=== PATIENT | male | born 1945 | race Caucasian/White ===

== ENCOUNTER 2017-10-01 18:21 | Emergency (ER) | payer OTHER ==
[~2017-10-01] VITALS: Ht 190.5 cm; Wt 59.0 kg
[~2017-10-01 18:21] MED LIST: ATIVAN0.5 M1; CARVEDILOL3.125 MG; CIPRO500 MG PO; CLONAZEPAM2 MG; FLUCONAZOLE50 MG PO; GABAPENTIN600 MG; MEGACE ES625 MG/5 M PO; NEURONTIN300 MG; PROSCAR5 MG; TAMS0.4C; TEMAZEPAM15 MG; VALSARTAN-HCTZ1 EAC3; VERAPAMIL ER240 MG
== END 2017-10-01 23:30 | disposition home or self-care (01) ==
LOC: ER 18:21
DX: E86.0 Dehydration (principal); I10 Essential (primary) hypertension; R06.02 Shortness of breath

== ENCOUNTER 2018-05-25 23:03 | Emergency (ER) | payer OTHER ==
[~2018-05-25] VITALS: Ht 190.5 cm; Wt 59.0 kg
== END 2018-05-26 12:35 | disposition home or self-care (01) ==
LOC: ER 23:03
DX: I16.0 Hypertensive urgency (principal); I10 Essential (primary) hypertension; R53.83 Other fatigue; F41.8 Other specified anxiety disorders